=== PATIENT | male | born 1985 | race Caucasian/White ===

== ENCOUNTER → 2016-07-16 | Emergency (ER) | payer OTHER ==
[~2016-07-16] MED LIST: CEFAZOLIN (PRE-DOCKED) 50 ML IVPB ONE; CEFAZOLIN 1 GM in DEXTROSE 5%-WATER - 50 ML IVPB ONE; CLINDAMYCIN 900 MG PREMIX IVPB 50 ML IVPB ONE; CLINDAMYCIN HCL 150 MG CAPSULE (FP) ONE; CLINDAMYCIN HCL 300 MG CAPSULE PO ONE; VANCOMYCIN 1 GRAM (PRE-DOCKED) 250 ML IVPB ONE; VANCOMYCIN 1,000 MG in DEXTROSE 5%-WATER - 250 ML IVPB ONE; morphine CARPU-JECT 4 MG/1 ML DISP.SYRIN ONE
[2016-07-16 22:07] VITALS: TEMP 100.5; BMI 33.2
--- NOTE | 2016-07-16 22:44 | PDOC ---
History of Present Illness - General History Source: Patient Exam Limitations: No Limitations - History of Present Illness Initial Comments: 07/16/16 22:56 The patient is a 31 year old male with no significant past medical history who presents to the ED with 1 week of progressively worsening wounds to the bilateral lower extremities. He states his wounds began as areas of erythema which subsequently blister and then develop into wounds with drainage. His wounds are on his left heel, left saavedra, right medial calf, and right medial ankle. Yesterday the patient also began to experience swelling and warmth of his right lower extremity. The patient denies fever, chills, nausea, vomiting, diarrhea. He denies any recent outdoor activity. He denies sick contacts. He denies noticing any animal bites. PCP: Dr. Jordan <Kailey Paz - Last Filed: 07/17/16 02:16> <Criss Portillo - Last Filed: 07/17/16 23:19> - General Chief Complaint: Wound Infection Stated Complaint: BITE Time Seen by Provider: 07/16/16 22:19 Past History <Kailey Paz - Last Filed: 07/17/16 02:16> - Psycho/Social/Smoking Cessation Hx Suicidal Ideation: No Smoking History: Never smoked <Criss Portillo - Last Filed: 07/17/16 23:19> - Past Medical History Allergies/Adverse Reactions: Allergies Allergy/AdvReac Type Severity Reaction Status Date / Time No Known Allergies Allergy Verified 07/16/16 22:07 Home Medications: Ambulatory Orders Bacitracin - [Bacitracin Topical Ointment -] 1 applic TP BID #15 g 07/17/16 Clindamycin [Cleocin -] 300 mg PO Q6HPO #28 capsule 07/17/16 Review of Systems - Review of Systems Able to Perform ROS?: Yes Comments:: 07/16/16 23:01 GENERAL/CONSTITUTIONAL: No fever or chills. No weakness. HEAD, EYES, EARS, NOSE AND THROAT: No change in vision. No ear pain or discharge. No sore throat CARDIOVASCULAR: No chest pain or shortness of breath. RESPIRATORY: No cough, wheezing, or hemoptysis. GASTROINTESTINAL: No nausea, vomiting, diarrhea or constipation. GENITOURINARY: No dysuria, frequency, or change in urination. MUSCULOSKELETAL: No joint or muscle swelling or pain. No neck or back pain. SKIN: +Erythematous wounds to bilateral lower extremities. +RLE Warmth and swelling. NEUROLOGIC: No headache, vertigo, loss of consciousness, or change in strength/ sensation. ENDOCRINE: No increased thirst. No abnormal weight change. HEMATOLOGIC/LYMPHATIC: No anemia, easy bleeding, or history of blood clots. ALLERGIC/IMMUNOLOGIC: No hives or skin allergy. <Kailey Paz - Last Filed: 07/17/16 02:16> *Physical Exam - Vital Signs Last Vital Signs Temp Pulse Resp BP Pulse Ox 100.5 F H 99 H 16 140/80 99 07/16/16 22:04 07/16/16 22:04 07/16/16 22:04 07/16/16 22:04 07/16/16 22:04 - Physical Exam Comments: 07/16/16 23:02 GENERAL: Awake, alert, and fully oriented, in no acute distress HEAD: No signs of trauma EYES: PERRLA, EOMI, sclera anicteric, conjunctiva clear ENT: Auricles normal inspection, hearing grossly normal, nares patent, oropharynx clear without exudates. Moist mucosa NECK: Normal ROM, supple, no lymphadenopathy, JVD, or masses LUNGS: Breath sounds equal, clear to auscultation bilaterally. No wheezes, and no crackles HEART: Regular rate and rhythm, normal S1 and S2, no murmurs, rubs or gallops ABDOMEN: Soft, nontender, normoactive bowel sounds. No guarding, no rebound. No masses EXTREMITIES: Right lower extremity: Cellulitis and warmth on left posterior medial calf. Open wound on distal anterior lower leg. Lateral bullous lesion and medial open wound. Right lower extremity: open lesion/bite, scabbed over with surrounding cellulitis. Normal range of motion, no edema. No clubbing or cyanosis. NEUROLOGICAL: Cranial nerves II through XII grossly intact. Normal speech, normal gait SKIN: Warm, Dry, normal turgor, no rashes or lesions noted. <Kailey Paz - Last Filed: 07/17/16 02:16> - Vital Signs Last Vital Signs Temp Pulse Resp BP Pulse Ox 100.5 F H 99 H 16 140/80 99 07/16/16 22:04 07/16/16 22:04 07/16/16 22:04 07/16/16 22:04 07/16/16 22:04 <Criss Portillo - Last Filed: 07/17/16 23:19> Heart Score/ECG Review #1 07/16/16 23:03 EKG obtained 22:50 Normal sinus rhythm at 91 bpm. Normal EKG. <Kailey Paz - Last Filed: 07/17/16 02:16> ED Treatment Course - LABORATORY CBC & Chemistry Diagram: 07/16/16 23:55 07/16/16 23:55 <Kailey Paz - Last Filed: 07/17/16 02:16> - LABORATORY CBC & Chemistry Diagram: 07/16/16 23:55 07/16/16 23:55 - RADIOLOGY Radiology Studies Ordered: Category Date Time Status DUPLEX VASCUL US-1 LEG [US] Stat Ultrasound 07/16/16 22:44 Ordered <Criss Portillo - Last Filed: 07/17/16 23:19> Medical Decision Making - Medical Decision Making 07/17/16 00:25 Patient Name: Lobo Ozuna THIS IS A PRELIMINARY REPORT FROM [facility] DATE OF SERVICE: 2016-07-16 22:56:57.0 IMAGES: 21 EXAM: DUPLEX VASCULAR US-1 LEG HISTORY:Right lower extremity pain COMPARISON: None. TECHNIQUE: Ultrasound of the right lower extremity with grayscale, color Doppler, and wave form analysis FINDINGS:Right lower extremity veins are normal in appearance with normal compressibility, flow, and augmentation IMPRESSION: No deep vein thrombosis THIS DOCUMENT HAS BEEN ELECTRONICALLY SIGNED 07/17/16 23:15 Pt comes with rash to bilateral legs. Left leg bites/rash last week. Now rash on right lower leg. RLL swollen and cellulitic. Pt has no DVT in the leg. Pt was given unasyn and vanco. Pt developed red man syndrome 1/2 way thru the vanco and we stopped it. I spoke to Dr. Jordan, who tells me that pt can be discharged home with clinda and follow in the office as an outpatient. Pt agrees with this plan, as he is refusing admission for IV abx. Pt understands that he can return for worsening infection for IV therapy. <Criss Portillo - Last Filed: 07/17/16 23:19> *DC/Admit/Observation/Transfer - Attestations Scribe Attestion: 07/16/16 23:03 Documentation prepared by Kailey Paz, acting as medical psychotherapist for Criss Portillo MD. <Kailey Paz - Last Filed: 07/17/16 02:16> - Discharge Dispostion Admit: No <Criss Portillo - Last Filed: 07/17/16 23:19> Diagnosis at time of Disposition: Cellulitis - Discharge Dispostion Disposition: HOME Condition at time of disposition: Stable - Prescriptions Prescriptions: Bacitracin - [Bacitracin Topical Ointment -] 1 applic TP BID #15 g Clindamycin [Cleocin -] 300 mg PO Q6HPO #28 capsule - Referrals Referrals: Vinicio Jordan MD [Primary Care Provider] - - Patient Instructions Printed Discharge Instructions: DI for Wound Infection, DI for Cellulitis -- Adult
[2016-07-17 00:12] LABS: BASOPHIL 0.2 % (0-2.0); EOSINOPHIL 1.9 % (0-4.5); MCH 28.5 pg (25.7-33.7); MCHC 33.6 g/dl (32.0-35.9); MEAN CELL VOLUME 84.8 fl (80-96); MEAN PLT VOLUME 9.7 fl (7.5-11.1); NEUTROPHILS 63.5 % (42.8-82.8); PLATELET COUNT 229 K/MM3 (134-434); RDW 13.5 % (11.9-15.9); WHITE BLOOD COUNT 10.6 K/mm3 (4.0-10.0)
[2016-07-17 00:26] LABS: INR 1.03 (0.82-1.09); PROTHROMBIN TIME (PATIENT) 11.3 SEC (9.98-11.88)
[2016-07-17 00:38] LABS: ALBUMIN 4.4 g/dl (3.4-5.0); ALK PHOS 59 U/L (45-117); ANION GAP 9 (8-16); BILIRUBIN,TOTAL 0.4 mg/dL (0.2-1.0); CALCIUM 9.4 mg/dL (8.5-10.1); CO2 29 mmol/L (21-32); COCKROFT - GAULT 157.33; GLUCOSE,RANDOM 96 mg/dL (74-106); SGOT/AST 22 U/L (15-37); SGPT/ALT 43 U/L (12-78); TOT PROT 7.8 g/dl (6.4-8.2)
[2016-07-17 01:30] VITALS: BP 119/63; PULSE 84
--- NOTE | 2016-07-18 10:41 | EKG ---
Test Reason : Blood Pressure : / mmHG Vent. Rate : 091 BPM Atrial Rate : 091 BPM P-R Int : 134 ms QRS Dur : 088 ms QT Int : 328 ms P-R-T Axes : 033 019 012 degrees QTc Int : 403 ms NORMAL SINUS RHYTHM NORMAL ECG NO PREVIOUS ECGS AVAILABLE Confirmed by SAEID ESCALANTE MD ([id number]) on 07/18/2016 10:41:28 AM Referred By: Confirmed By:SAEID ESCALANTE MD
== END | disposition home or self-care (01) ==
LOC: JER 21:58
PROC: 3E03329 Introduction of Other Anti-infective into Peripheral Vein, Percutaneous Approach (ICD-10-PCS; principal; 2016-07-16)
PROC: 3E03329 Introduction of Other Anti-infective into Peripheral Vein, Percutaneous Approach (ICD-10-PCS; 2016-07-16)
PROC: 3E033GC Introduction of Other Therapeutic Substance into Peripheral Vein, Percutaneous Approach (ICD-10-PCS; 2016-07-16)
DX: L03.116 Cellulitis of left lower limb (principal); L03.115 Cellulitis of right lower limb; S80.862A Insect bite (nonvenomous), left lower leg, initial encounter; S80.861A Insect bite (nonvenomous), right lower leg, initial encounter; W57.XXXA Bitten or stung by nonvenomous insect and other nonvenomous arthropods, initial encounter; Y93.89 Activity, other specified; Y92.89 Other specified places as the place of occurrence of the external cause; Y99.8 Other external cause status
CPT/HCPCS: 36415; 71010-TC; 80053; 85025; 85610; 85651; 86140; 93005; 93010; 93971-TC; 99282-25

== ENCOUNTER 2016-07-25 20:06 | Inpatient (IN) | payer OTHER ==
[2016-07-25 20:24] VITALS: BMI 32.5
[2016-07-25] MEDS ORDERED: VANCOMYCIN 1,000 MG in DEXTROSE 5%-WATER - 250 ML IVPB ONE (22:17)
--- NOTE | 2016-07-25 22:26 | PDOC ---
History of Present Illness - General Chief Complaint: Wound Infection Stated Complaint: PCP ADMIT Time Seen by Provider: 07/25/16 21:40 History Source: Patient Exam Limitations: No Limitations - History of Present Illness Initial Comments: 07/25/16 22:24 31yo Male patient presents to ED c/o right elbow pain, swelling, redness starting today. Patient states he was seen in this ED Monday and referred to Infectious Disease Dr. Rowland. Patient state he was prescribed Doxycycline 100mg BID. Today patient developed right elbow swelling, moderate erythema, severe pain/tenderness with decreased ROM. Patient states he has been taking Abx. Denies fever, injury, or any other complaints at this time. Timing/Duration: reports: this evening Severity: Yes: severe Location: reports: extremities Respiratory Risk Factors: denies: no cause identified, exposure to illness, exposure to allergen, foods, insect bite, insect sting, medications, pollen, soaps, other Modifying Factors: worse with: antihistamine, calamine lotion, prednisone, scratching, topical steriods, other Associated Symptoms: reports: edema. denies: fever Past History - Travel Traveled outside of the country in the last 30 days: No Close contact w/someone who was outside of country & ill: No - Past Medical History Allergies/Adverse Reactions: Allergies Allergy/AdvReac Type Severity Reaction Status Date / Time No Known Allergies Allergy Verified 07/25/16 20:19 Home Medications: Ambulatory Orders Bacitracin - [Bacitracin Topical Ointment -] 1 applic TP BID #15 g 07/17/16 Clindamycin [Cleocin -] 300 mg PO Q6HPO #28 capsule 07/17/16 Anemia: No Asthma: No Cancer: No Cardiac Disorders: No CVA: No COPD: No DVT: No Dementia: No Diabetes: No Dialysis: No GI Disorders: No Disorders: No HTN: No Hypercholesterolemia: No HIV: No Kidney Stones: No Liver Disease: No Psychiatric Problems: No Seizures: No Thyroid Disease: No Lung CA: No - Surgical History Abdominal Surgery: No Appendectomy: No Cardiac Surgery: No Cholecystectomy: No Gastric Stapling: No GI Surgery: No Lung Surgery: No Neurologic Surgery: No - Immunization History Immunization Up to Date: Yes - Psycho/Social/Smoking Cessation Hx Suicidal Ideation: No Smoking History: Never smoked Information on smoking cessation initiated: No Hx Alcohol Use: No Drug/Substance Use Hx: No Review of Systems - Review of Systems Able to Perform ROS?: Yes Is the patient limited Indonesian proficient: No Constitutional: No: Chills, Fever Respiratory: No: Cough, Stridor, Wheezing Cardiac (ROS): No: Chest Pain Musculoskeletal: Yes: See HPI, Joint Pain, Joint Swelling Integumentary: Yes: Erythema. No: Change in Hair/Nails, Rash Neurological: No: Headache, Seizure, Dizziness All Other Systems: Reviewed and Negative *Physical Exam - Vital Signs Last Vital Signs Temp Pulse Resp BP Pulse Ox 98.4 F 90 18 138/81 100 07/25/16 20:19 07/25/16 20:19 07/25/16 20:19 07/25/16 20:19 07/25/16 20:19 - Physical Exam General Appearance: Yes: Nourished, Appropriately Dressed. No: Apparent Distress, Mild Distress, Moderate Distress, Severe Distress Neck: positive: Trachea midline, Supple. negative: Decreased range of motion, Stridor, Lymphadenopathy (R), Lymphadenopathy (L) Respiratory/Chest: positive: Lungs Clear, Normal Breath Sounds. negative: Chest Tender, Respiratory Distress, Accessory Muscle Use, Labored Respiration, Rapid RR Cardiovascular: positive: Regular Rhythm, Regular Rate Gastrointestinal/Abdominal: positive: Normal Bowel Sounds, Soft. negative: Distended, Guarding, Rebound, Tenderness Musculoskeletal: positive: Normal Inspection, Decreased Range of Motion. negative: CVA Tenderness ED Treatment Course - LABORATORY CBC & Chemistry Diagram: 07/25/16 22:30 07/25/16 22:30 - RADIOLOGY Radiology Studies Ordered: Category Date Time Status ELBOW-RIGHT [RAD] Stat Radiology 07/25/16 22:17 Ordered *DC/Admit/Observation/Transfer Diagnosis at time of Disposition: Cellulitis Qualifiers: Site of cellulitis: extremity Site of cellulitis of extremity: upper extremity Laterality: right Qualified Code(s): L03.113 - Cellulitis of right upper limb - Discharge Dispostion Condition at time of disposition: Fair Admit: Yes
[2016-07-25] MEDS ORDERED: CLINDAMYCIN 900 MG PREMIX IVPB 50 ML IVPB ONE (22:59)
[2016-07-25 23:04] LABS: BASOPHIL 0.4 % (0-2.0); EOSINOPHIL 2.1 % (0-4.5); MCH 28.2 pg (25.7-33.7); MCHC 33.2 g/dl (32.0-35.9); MEAN CELL VOLUME 84.9 fl (80-96); MEAN PLT VOLUME 9.3 fl (7.5-11.1); NEUTROPHILS 55.3 % (42.8-82.8); PLATELET COUNT 277 K/MM3 (134-434); RDW 13.3 % (11.9-15.9); WHITE BLOOD COUNT 9.2 K/mm3 (4.0-10.0)
[2016-07-25 23:05] LABS: URINE APPEARANCE CLEAR; URINE BILIRUBIN NEGATIVE (NEGATIVE); URINE BLOOD NEGATIVE (NEGATIVE); URINE COLOR STRAW; URINE GLUCOSE (UA) NEGATIVE (NEGATIVE); URINE KETONE NEGATIVE (NEGATIVE); URINE LEUK ESTERASE NEGATIVE (NEGATIVE); URINE NITRITE NEGATIVE (NEGATIVE); URINE PROTEIN NEGATIVE (NEGATIVE); URINE UROBILINOGEN NEGATIVE E.U./dl (0.2-1.0)
[2016-07-25 23:51] LABS: ALBUMIN 4.3 g/dl (3.4-5.0); ALK PHOS 54 U/L (45-117); ANION GAP 11 (8-16); BILIRUBIN,TOTAL 0.3 mg/dL (0.2-1.0); CALCIUM 9.3 mg/dL (8.5-10.1); CO2 28 mmol/L (21-32); COCKROFT - GAULT 153.8; GLUCOSE,RANDOM 97 mg/dL (74-106); SGOT/AST 26 U/L (15-37); SGPT/ALT 62 U/L (12-78); TOT PROT 7.6 g/dl (6.4-8.2)
--- NOTE | 2016-07-26 02:32 | PDOC ---
*Physical Exam - Vital Signs Last Vital Signs Temp Pulse Resp BP Pulse Ox 98.6 F 67 16 135/63 100 07/26/16 02:22 07/26/16 02:22 07/26/16 02:22 07/26/16 02:22 07/26/16 02:22 ED Treatment Course - LABORATORY CBC & Chemistry Diagram: 07/25/16 22:30 07/25/16 22:30 - ADDITIONAL ORDERS Additional order review: Laboratory Results 07/25/16 07/25/16 22:30 22:30 Sodium 140 Potassium 4.0 Chloride 101 Carbon Dioxide 28 Anion Gap 11 BUN 14 Creatinine 1.0 Creat Clearance w eGFR > 60 Random Glucose 97 Calcium 9.3 Total Bilirubin 0.3 D AST 26 ALT 62 D Alkaline Phosphatase 54 Total Protein 7.6 Albumin 4.3 Urine Color Straw Urine Appearance Clear Urine pH 6.0 Urine Protein Negative Urine Glucose (UA) Negative Urine Ketones Negative Urine Blood Negative Urine Nitrite Negative Urine Bilirubin Negative Urine Urobilinogen Negative Ur Leukocyte Esterase Negative 07/25/16 22:30 RBC 4.54 MCV 84.9 MCHC 33.2 RDW 13.3 MPV 9.3 Neutrophils % 55.3 Lymphocytes % 33.5 D Monocytes % 8.7 Eosinophils % 2.1 Basophils % 0.4 - Medications Given in the ED: ED Medications Discontinued Medications Generic Name Dose Route Start Last Admin Trade Name Janet PRN Reason Stop Dose Admin Vancomycin HCl 1,000 mg/ 250 mls @ 250 mls/hr 07/25/16 22:17 07/25/16 23:06 Dextrose IVPB 07/25/16 23:16 Not Given ONCE ONE Protocol Clindamycin Phosphate 50 mls @ 100 mls/hr 07/25/16 22:59 07/25/16 23:05 Cleocin 900 Mg Premix Ivpb - IVPB 07/25/16 23:28 100 mls/hr ONCE ONE Administration Medical Decision Making - Medical Decision Making 07/26/16 02:32 agree with care from MODESTO Taveras *DC/Admit/Observation/Transfer Diagnosis at time of Disposition: Cellulitis Qualifiers: Site of cellulitis: extremity Site of cellulitis of extremity: upper extremity Laterality: right Qualified Code(s): L03.113 - Cellulitis of right upper limb - Discharge Dispostion Condition at time of disposition: Fair
[2016-07-26] MEDS ORDERED: morphine CARPU-JECT 4 MG/1 ML DISP.SYRIN IVPUSH ONE (02:40)
[2016-07-26] MEDS ORDERED: ONDANSETRON 4 MG/2 ML VIAL IVPB PRN (09:18)
[2016-07-26] MEDS ORDERED: ACETAMINOPHEN 325 MG TABLET (FP) PO PRN (09:18)
--- NOTE | 2016-07-26 09:26 | HP ---
Admitting History and Physical - Primary Care Physician PCP: Vinicio Jordan - Admission Chief Complaint: My elbow hurts History of Present Illness: Mr Ozuna is a pleasant 31 year old who presented with cellulitis. He was here last week with redness and blisters on his legs. He was seen in the ED and was given unasyn and vancomycin. However he developed red man syndrome jail through his vancomycin infusion so it was stopped. He was discharged on clindamycin with follow up. He was seen by Dr Jordan and Dr Rowland and the clindamycin was continued. While the cellulitis on his legs improved, he developed cellulitis on his right elbow that worsened even with oral clindamycin. Because of that he comes in. Aside from redness and pain he is without complaint. He denies fevers, chills, lightheadedness, dizziness, passing out, chest pain, shortness of breath, nausea, vomiting, diarrhea, constipation, or leg swelling. History Source: Patient Limitations to Obtaining History: No Limitations - Past Medical History Additional Past Medical History: Negative PMHx - Past Surgical History Past Surgical History: Yes: None - Smoking History Smoking history: Never smoked - Alcohol/Substance Use Hx Alcohol Use: No History of Substance Use: reports: None - Social History ADL: Independent History of Recent Travel: No Home Medications - Allergies Allergies/Adverse Reactions: Allergies Allergy/AdvReac Type Severity Reaction Status Date / Time vancomycin Allergy Verified 07/26/16 07:20 - Home Medications Home Medications: Ambulatory Orders Bacitracin - [Bacitracin Topical Ointment -] 1 applic TP BID #15 g 07/17/16 Clindamycin [Cleocin -] 300 mg PO Q6HPO #28 capsule 07/17/16 Family Disease History - Family Disease History Family Disease History: Diabetes: Father Review of Systems Findings/Remarks: full review of systems obtained, as per HPI and otherwise negative Physical Examination Vital Signs: Vital Signs Temperature 98.3 F 07/26/16 05:03 Pulse Rate 69 07/26/16 05:03 Respiratory Rate 16 07/26/16 05:03 Blood Pressure 106/49 07/26/16 05:03 O2 Sat by Pulse Oximetry (%) 99 07/26/16 05:03 Constitutional: Yes: No Distress, Calm, Obese Eyes: Yes: Conjunctiva Clear, EOM Intact, PERRL HENT: Yes: Atraumatic, Normocephalic Cardiovascular: Yes: Regular Rate and Rhythm. No: Gallop, Murmur, Rub Respiratory: Yes: Regular, CTA Bilaterally. No: Rales, Rhonchi, Wheezes Gastrointestinal: Yes: Normal Bowel Sounds, Soft. No: Distention, Tenderness Extremities: Yes: Erythema (R elbow) Edema: No Labs: Laboratory Results - last 24 hr 07/25/16 07/25/16 07/25/16 22:30 22:30 22:30 WBC 9.2 RBC 4.54 Hgb 12.8 Hct 38.5 MCV 84.9 MCHC 33.2 RDW 13.3 Plt Count 277 D MPV 9.3 Neutrophils % 55.3 Lymphocytes % 33.5 D Monocytes % 8.7 Eosinophils % 2.1 Basophils % 0.4 Sodium 140 Potassium 4.0 Chloride 101 Carbon Dioxide 28 Anion Gap 11 BUN 14 Creatinine 1.0 Creat Clearance w eGFR > 60 Random Glucose 97 Calcium 9.3 Total Bilirubin 0.3 D AST 26 ALT 62 D Alkaline Phosphatase 54 Total Protein 7.6 Albumin 4.3 Urine Color Straw Urine Appearance Clear Urine pH 6.0 Urine Protein Negative Urine Glucose (UA) Negative Urine Ketones Negative Urine Blood Negative Urine Nitrite Negative Urine Bilirubin Negative Urine Urobilinogen Negative Ur Leukocyte Esterase Negative Imaging - Results X-ray: Report Reviewed Problem List - Problems (1) Cellulitis Assessment/Plan: -patient presents to the hospital with cellulitis, failed outpatient therapy -admit to the hospital -start IV clindamycin -Dr Rowland consulted -lactobacillus ordered for prophylaxis Code(s): L03.90 - CELLULITIS, UNSPECIFIED Qualifiers: Site of cellulitis: extremity Site of cellulitis of extremity: upper extremity Laterality: right Qualified Code(s): L03.113 - Cellulitis of right upper limb
[2016-07-26] MEDS ORDERED: CLINDAMYCIN 600MG PREMIX IVPB 50 ML IVPB ONE (11:01)
[2016-07-26] MEDS: CLINDAMYCIN 600MG PREMIX IVPB 50 ML IVPB SCH ×3 (11:03→21:42)
[2016-07-26] MEDS: LACTOBACILLUS ACIDOPHILUS 1 EACH TAB (FP) PO SCH (12:25)
--- NOTE | 2016-07-26 12:32 | CONSULT ---
Consult Consult Specialty:: infectious diseases Reason for Consultation:: cellulitis of the elbow - History of Present Illness Chief Complaint: swelling and cellulitits of the elbow History of Present Illness: 31 year old who presented with cellulitis. He was here last week with redness and blisters on his legs. He was seen in the ED and was given unasyn and vancomycin. However he developed red man syndrome fpc through his vancomycin infusion so it was stopped. He was discharged on clindamycin with follow up. He was seen by his pcp for multiple small boils on his legs and arms and patient was started on clinda on which he was not improving and was referred to my office patient was seen by me in the office and i switched him from clinda to doxy patient started improving,but then couple of days later developed cellulitits of the elbow region for which he came to the hospital and was started on iv abx patient has no other issues denies any pain - History Source History Provided By: Patient Limitations to Obtaining History: No Limitations - Past Surgical History Past Surgical History: Yes: None - Alcohol/Substance Use Hx Alcohol Use: Yes History of Substance Use: reports: None - Smoking History Smoking history: Never smoked - Social History ADL: Independent History of Recent Travel: No Home Medications - Allergies Allergies/Adverse Reactions: Allergies Allergy/AdvReac Type Severity Reaction Status Date / Time vancomycin Allergy Verified 07/26/16 07:20 - Home Medications Home Medications: Ambulatory Orders Bacitracin - [Bacitracin Topical Ointment -] 1 applic TP BID #15 g 07/17/16 Clindamycin [Cleocin -] 300 mg PO Q6HPO #28 capsule 07/17/16 Doxycycline Hyclate [Vibramycin] 100 mg PO BID #14 capsule 07/28/16 Family Disease History - Family Disease History Family Disease History: Diabetes: Father Review of Systems - Review of Systems Constitutional: reports: No Symptoms Eyes: reports: No Symptoms HENT: reports: No Symptoms Neck: reports: No Symptoms Cardiovascular: reports: No Symptoms Respiratory: reports: No Symptoms Gastrointestinal: reports: No Symptoms Genitourinary: reports: No Symptoms Musculoskeletal: reports: Other (redness and erythema of the rt elbow) Integumentary: reports: Change in Color, Erythema (rt elbow) Neurological: reports: No Symptoms Endocrine: reports: No Symptoms Hematology/Lymphatic: reports: No Symptoms Physical Exam Vital Signs: Vital Signs Temperature 98.2 F 07/26/16 09:45 Pulse Rate 65 07/26/16 09:45 Respiratory Rate 20 07/26/16 09:45 Blood Pressure 136/80 07/26/16 09:45 O2 Sat by Pulse Oximetry (%) 99 07/26/16 09:45 Constitutional: Yes: Well Nourished, No Distress, Calm, Obese Eyes: Yes: Conjunctiva Clear HENT: Yes: Atraumatic Neck: Yes: Supple Cardiovascular: Yes: Regular Rate and Rhythm Respiratory: Yes: Regular, CTA Bilaterally Gastrointestinal: Yes: Normal Bowel Sounds, Soft Musculoskeletal: Yes: Other Extremities: Yes: Other (cellulitits of the rt elbow) Neurological: Yes: Alert, Oriented Psychiatric: Yes: Alert, Oriented Imaging - Results X-ray: Report Reviewed, Image Reviewed Assessment/Plan - Problems (1) Cellulitis Code(s): L03.90 - CELLULITIS, UNSPECIFIED Qualifiers: Site of cellulitis: extremity Site of cellulitis of extremity: upper extremity Laterality: right Qualified Code(s): L03.113 - Cellulitis of right upper limb mrsa infection of the leg plan will start patient on iv rest ct current mgmt
[2016-07-26] MEDS ORDERED: PIPERACILLIN/TAZOB 3.375 GM 50 ML IVPB ONE (12:54)
[2016-07-26] MEDS: PIPERACILLIN/TAZOB 3.375 GM 50 ML IVPB SCH ×2 (12:55→18:05)
[2016-07-27] MEDS: PIPERACILLIN/TAZOB 3.375 GM 50 ML IVPB SCH ×3 (01:05→18:53)
[2016-07-27] MEDS: CLINDAMYCIN 600MG PREMIX IVPB 50 ML IVPB SCH ×4 (02:33→21:24)
[2016-07-27 06:52] LABS: BASOPHIL 0.4 % (0-2.0); EOSINOPHIL 4.9 % (0-4.5); MCH 29.1 pg (25.7-33.7); MCHC 34.2 g/dl (32.0-35.9); MEAN PLT VOLUME 9.6 fl (7.5-11.1); NEUTROPHILS 46.7 % (42.8-82.8); PLATELET COUNT 239 K/MM3 (134-434); RDW 13.2 % (11.9-15.9); WHITE BLOOD COUNT 6.6 K/mm3 (4.0-10.0)
[2016-07-27 07:12] LABS: CALCIUM 9.4 mg/dL (8.5-10.1); COCKROFT - GAULT 128.2; CREATININE 1.2 mg/dL (0.7-1.3); MAGNESIUM 2.3 mg/dL (1.8-2.4)
[2016-07-27] MEDS ORDERED: PT OWN MED DRAWER 7, Y5N ONE (10:12)
[2016-07-27] MEDS: LACTOBACILLUS ACIDOPHILUS 1 EACH TAB (FP) PO SCH (10:21)
--- NOTE | 2016-07-27 12:08 | PN ---
Progress Note, Physician Chief Complaint: Mr Ozuna says he is feeling well. Pain has resolved. No cp, sob, n/v. - Current Medication List Current Medications: Active Medications Acetaminophen (Tylenol -) 650 mg PO Q4H PRN PRN Reason: FEVER OR PAIN Clindamycin Phosphate (Cleocin 600 Mg Premix Ivpb -) 50 mls @ 100 mls/hr IVPB Q6H-IV JOSE Last Admin: 07/27/16 10:21 Dose: 100 mls/hr Piperacillin Sod/Tazobactam Sod (Zosyn 3.375gm Ivpb (Pre-Docked)) 50 mls @ 100 mls/hr IVPB Q8H-IV JOSE PRN Reason: Protocol Last Admin: 07/27/16 10:21 Dose: 100 mls/hr Lactobacillus Acidophilus (Bacid -) 1 tab PO DAILY JOSE Last Admin: 07/27/16 10:21 Dose: 1 tab Ondansetron HCl (Zofran Injection) 4 mg IVPB Q6H PRN PRN Reason: NAUSEA - Objective Vital Signs: Vital Signs Temperature 98.1 F 07/27/16 05:55 Pulse Rate 55 L 07/27/16 05:55 Respiratory Rate 20 07/27/16 05:55 Blood Pressure 137/62 07/27/16 05:55 O2 Sat by Pulse Oximetry (%) 99 07/26/16 09:45 Constitutional: Yes: No Distress, Calm, Obese Cardiovascular: Yes: Regular Rate and Rhythm. No: Gallop, Murmur, Rub Respiratory: Yes: Regular, CTA Bilaterally. No: Rales, Rhonchi, Wheezes Gastrointestinal: Yes: Normal Bowel Sounds, Soft. No: Distention, Tenderness Extremities: Yes: Erythema (much improved) Edema: No Labs: CBC, BMP 07/27/16 05:55 07/27/16 05:55 Problem List - Problems (1) Cellulitis Code(s): L03.90 - CELLULITIS, UNSPECIFIED Qualifiers: Site of cellulitis: extremity Site of cellulitis of extremity: upper extremity Laterality: right Qualified Code(s): L03.113 - Cellulitis of right upper limb Assessment/Plan (1) Cellulitis Assessment/Plan: -improving -continue IV clindamycin -? discharge tomorrow Code(s): L03.90 - CELLULITIS, UNSPECIFIED Qualifiers: Site of cellulitis: extremity Site of cellulitis of extremity: upper extremity Laterality: right Qualified Code(s): L03.113 - Cellulitis of right upper limb
[2016-07-28] MEDS: CLINDAMYCIN 600MG PREMIX IVPB 50 ML IVPB SCH ×2 (02:20→09:59)
[2016-07-28] MEDS: PIPERACILLIN/TAZOB 3.375 GM 50 ML IVPB SCH ×2 (02:20→10:51)
[2016-07-28 07:46] LABS: BASOPHIL 0.3 % (0-2.0); EOSINOPHIL 4.8 % (0-4.5); MCH 28.6 pg (25.7-33.7); MCHC 33.7 g/dl (32.0-35.9); MEAN CELL VOLUME 84.9 fl (80-96); MEAN PLT VOLUME 9.8 fl (7.5-11.1); PLATELET COUNT 233 K/MM3 (134-434); RDW 13.2 % (11.9-15.9); WHITE BLOOD COUNT 5.7 K/mm3 (4.0-10.0)
[2016-07-28 08:17] LABS: CALCIUM 9.1 mg/dL (8.5-10.1); MAGNESIUM 2.6 mg/dL (1.8-2.4)
[2016-07-28 08:18] LABS: COCKROFT - GAULT 170.9; CREATININE 0.9 mg/dL (0.7-1.3); PHOSPHOROUS 5.2 mg/dL (2.5-4.9)
[2016-07-28] MEDS: LACTOBACILLUS ACIDOPHILUS 1 EACH TAB (FP) PO SCH (09:59)
[2016-07-28 11:18] VITALS: BP 103/59; PULSE 50; TEMP 98.9
--- NOTE | 2016-07-28 13:26 | DS ---
Physical Examination Vital Signs: Vital Signs Temperature 98.9 F 07/28/16 10:18 Pulse Rate 50 L 07/28/16 10:18 Respiratory Rate 18 07/28/16 10:18 Blood Pressure 103/59 07/28/16 10:18 O2 Sat by Pulse Oximetry (%) 99 07/27/16 21:00 Constitutional: Yes: Well Nourished, No Distress, Calm Cardiovascular: Yes: Regular Rate and Rhythm. No: Gallop, Murmur, Rub Respiratory: Yes: Regular, CTA Bilaterally. No: Rales, Rhonchi, Wheezes Gastrointestinal: Yes: Normal Bowel Sounds, Soft. No: Distention, Tenderness Extremities: Yes: WNL Edema: No Labs: CBC, BMP 07/28/16 06:30 07/28/16 06:30 Discharge Summary Reason For Visit: CELLULITIS OF ELBOW Current Active Problems Cellulitis (Acute) Hospital Course: (1) Cellulitis Code(s): L03.90 - CELLULITIS, UNSPECIFIED Qualifiers: Site of cellulitis: extremity Site of cellulitis of extremity: upper extremity Laterality: right Qualified Code(s): L03.113 - Cellulitis of right upper limb Mr Ozuna is a very pleasant 31 year old who comes in with cellulitis, failing outpatient therapy. He was admitted to the hospital and started on IV clindamycin and improved significantly. He was seen by ID and this was continued. His cellulitis resolved and he was transitioned back on doxycycline. He is to follow up with ID on Monday. Condition: Good - Instructions Diet, Activity, Other Instructions: resume previous diet and activity Referrals: Ronan Rowland MD [Staff Physician] - Vinicio Jordan MD [Primary Care Provider] - Disposition: HOME - Home Medications Comprehensive Discharge Medication List: Ambulatory Orders Bacitracin - [Bacitracin Topical Ointment -] 1 applic TP BID #15 g 07/17/16 Clindamycin [Cleocin -] 300 mg PO Q6HPO #28 capsule 07/17/16
--- NOTE | 2016-07-28 14:53 | PN ---
Progress Note, Physician History of Present Illness: stable swelling minimal patient being discharged home by primary - Objective Vital Signs: Vital Signs Temperature 98.9 F 07/28/16 10:18 Pulse Rate 50 L 07/28/16 10:18 Respiratory Rate 18 07/28/16 10:18 Blood Pressure 103/59 07/28/16 10:18 O2 Sat by Pulse Oximetry (%) 97 07/28/16 09:00 Constitutional: Yes: No Distress, Calm Cardiovascular: Yes: Regular Rate and Rhythm Respiratory: Yes: Regular, CTA Bilaterally Musculoskeletal: Yes: Other Extremities: Yes: Erythema (still present but much better) Neurological: Yes: Alert, Oriented Psychiatric: Yes: Alert Labs: CBC, BMP 07/28/16 06:30 07/28/16 06:30 Assessment/Plan - Problems (1) Cellulitis Code(s): L03.90 - CELLULITIS, UNSPECIFIED Qualifiers: Site of cellulitis: extremity Site of cellulitis of extremity: upper extremity Laterality: right Qualified Code(s): L03.113 - Cellulitis of right upper limb mrsa infection of the leg plan d/w Dr. Wen asked that the patient be on on doxy will monitor the cellulitis if does not resolve will need iv abx again rest continua current mgmt
--- NOTE | 2016-07-31 10:12 | PN ---
Progress Note, Physician History of Present Illness: patients elbow starting to look better patient has no complaint other boils on the leg have healed - Objective Vital Signs: Vital Signs Temperature 98.9 F 07/28/16 10:18 Pulse Rate 50 L 07/28/16 10:18 Respiratory Rate 18 07/28/16 10:18 Blood Pressure 103/59 07/28/16 10:18 O2 Sat by Pulse Oximetry (%) 97 07/28/16 09:00 Constitutional: Yes: No Distress, Calm Cardiovascular: Yes: Regular Rate and Rhythm Respiratory: Yes: Regular, CTA Bilaterally Gastrointestinal: Yes: Normal Bowel Sounds, Soft Musculoskeletal: Yes: Other Extremities: Yes: Erythema (of the rt elbow improving) Integumentary: Yes: Erythema (resolving) Neurological: Yes: Alert, Oriented Psychiatric: Yes: Alert, Oriented Labs: CBC, BMP 07/28/16 06:30 07/28/16 06:30 Assessment/Plan - Problems (1) Cellulitis Code(s): L03.90 - CELLULITIS, UNSPECIFIED Qualifiers: Site of cellulitis: extremity Site of cellulitis of extremity: upper extremity Laterality: right Qualified Code(s): L03.113 - Cellulitis of right upper limb mrsa infection of the leg plan continue iv rest as per primary team
== END 2016-07-28 14:26 | disposition home or self-care (01) | DRG 603 ==
LOC: JER 20:06 → JERBED 07-26 01:43 → J6S 07-26 16:07 → J5S 07-27 19:53
PROVIDERS: ADMIT Internal Medicine; ATTEND Internal Medicine
DX: L03.113 Cellulitis of right upper limb (principal)
CPT/HCPCS: 36415; 73070-TC-RT; 80048; 80053; 81003; 83735; 84100; 85025; 85730; 87040; 94010; 99282-25